=== PATIENT | male | born 1945 | race Caucasian/White ===

== ENCOUNTER 2019-08-14 09:27 | Inpatient (IN) | payer OTHER, SELFPAY ==
[2019-08-14] VITALS (26 sets, daily range): BP systolic 125–161; BP diastolic 59–119; PULSE 52–86; RESP 14–20; TEMP 36–36.6; O2SAT 92–100; BMI 31.6
--- NOTE | ~2019-08-14 | XR_ITS ---
XR chest 2V 08/14/2019 10:29 Indication: Chest palpitations, cough and dyspnea Procedure: 2 view chest Comparison: No prior studies for comparison. Findings: Status post median sternotomy for CABG. Cardiomegaly. No focal air space disease, pulmonary edema, pleural effusion or suspected pneumothorax. Impression: 1: No acute cardiopulmonary disease. Reviewed, dictated and finalized at location B. [facility] FLOOR LAYER Impression: 1: No acute cardiopulmonary disease.
--- NOTE | ~2019-08-14 | CT_ITS ---
EXAMINATION: CT brain wo con DATE: 08/14/2019 11:17 INDICATION: Lightheadedness. Dizziness. TECHNIQUE: Computed tomography (CT) of the head was performed without intravenous contrast. The mA wa s adjusted according to patient size. Iterative reconstruction technique was employed. The dose-lengt h product was 605.33 mGy-cm. COMPARISON: None FINDINGS: There are scattered areas of low attenuation in the cerebral white matter. There are old la cunar infarcts in the right thalamus and bilateral caudate nuclei. There is no intracranial hemorrhag e, acute infarction, or abnormal intracranial mass lesion. The ventricles are normal in size. There i s mucosal thickening in the paranasal sinuses. The mastoid air cells are normal. IMPRESSION: 1. Old lacunar infarcts in the right thalamus and bilateral caudate nuclei. 2. Mild nonspecific cerebral white matter disease, which likely represents chronic small vessel ische marisela disease. Reviewed, dictated and finalized at location A. F NURSE EXECUTIVE IMPRESSION: 1. Old lacunar infarcts in the right thalamus and bilateral caudate nuclei. 2. Mild nonspecific cerebral white matter disease, which likely represents life scientist marshall small vessel ischemic disease.
--- NOTE | 2019-08-14 10:11 | ED.ARRPALP ---
HPI - Arrhythmia/Palpitations General Chief Complaint: Arrhythmia/Palpitations Stated Complaint: weakness Time Seen by Provider: 08/14/19 09:57 Source: patient Mode of arrival: ambulatory Limitations: no limitations History of Present Illness HPI narrative: Pt is a 74 y/o male who presents to the ED with c/o lightheadedness that started Tuesday (2 days ago). Pt denies feeling dizzy but states that he feels uneasy. Pt is able to get up and walk around without feeling dizzy. He denies CP, SOB, ABD pain, numbness, leg swelling, or rashes. He states that he has been fighting a cough/cold for the last week. 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 He states that he was able to work 3 days ago. This morning he went to see his PCP and he was evaluated and had an EKG done. Pt states that his pulse rate was between 33-60BPM and they recommended he come to the ED and get evaluated. He notes that he took Tylenol Cold and Flu 3 days ago. Pt has a H/o of HTN, HLD, DM, and CABG. He denies a H/o COPD and he is a former smoker. complaint: irregular heart beat (lightheadedness) Onset (ago): day(s) (2) Duration: intermittent Associated symptoms: denies other symptoms Related Data Allergies Allergy/AdvReac Type Severity Reaction Status Date / Time No Known Allergies Allergy Unverified 08/14/19 10:13 Review of Systems Review of Systems: Narrative: CARDIOVASCULAR: Reports lightheadedness and irregular heartbeat. Denies CP RESPIRATORY: Denies dyspnea. Reports cough GASTROINTESTINAL: Denies abdominal pain. SKIN: Denies rash. MUSCULOSKELETAL: Denies BLE swelling NEUROLOGIC: Denies dizziness, numbness All systems reviewed & are unremarkable except as noted in HPI and below PMFSH Past Medical History Medical History (Updated 08/14/19 @ 13:28 by Darya Archuleta MD) CAD (coronary artery disease) CKD (chronic kidney disease), stage I Dizziness HTN (hypertension) Hyperlipidemia Hypothyroid Type 2 diabetes mellitus without complications Surgical History Surgical History History of basal cell carcinoma (BCC) excision (~2015) Back History of knee surgery (~2015) Right S/P CABG x 4 (~2012) Family History Family History (Updated 02/24/16 @ 11:08 by DOCTOR UNKNOWN) Other Diabetes mellitus Hypertension Social History Social History Smoking status: Former smoker Smoking end date: 06/13/11 Alcohol intake: current Exam Narrative: Exam Narrative: GENERAL: Well-appearing, well-nourished, and in no acute distress. HEAD: Normocephalic, atraumatic. EYES: PERRLA and EOMI. ENT: Nares clear, no rhinorrhea or epistaxis. Mucous membranes moist. NECK: Supple. CHEST: Faint wheezing. No respiratory distress. HEART: Regular rate and rhythm. No murmur heard. Normal peripheral pulses. ABDOMEN: Soft, nontender, nondistended, normal active bowel sounds. EXTREMITIES: Normal range of motion. No edema. SKIN: Warm, dry, no rash. NEURO: No focal deficits. Alert and oriented X3. Finger to nose intact bilaterally. EOMs intact without nystagmus. No facial droop/asymmetry noted bilaterally. Grimace intact. Intact sensation in face. Hearing intact bilaterally. Shoulder shrug intact. Strength 5/5 bilateral upper extremities. Strength 5/5 bilateral lower extremities. Reflexes 2+ patellar. Heel to milner intact bilaterally. Attempted to ambulate patient, he becomes very symptomatic, dizzy, monitor reads rate of 30s with frequent PVCs. Course Course Emergency Course: Patient presented for evaluation of low heart rate, concern for PVCs after being evaluated at his primary care physician's office. Patient states he has been generally feeling unwell, otherwise has cough, congestion type symptoms. No respiratory distress. No nausea, vomiting or vision changes. Patient has frequent PVCs on his EKG, at times seems to only be conducting beats at 30 bpm. Other
[2019-08-14] MEDS: SODIUM CHLORIDE 0.9% IV 1,000 ML 999 ML IV CONT ×2 (10:20→12:30)
[2019-08-14 10:25] LABS: Basophils Absolute Auto 0.1 K/mm3 (0.0-0.1); Basophils Percent Auto 0.6 % (0.2-1.2); Eosinophils Absolute Auto 0.2 K/mm3 (0-0.3); Eosinophils Percent Auto 2.7 % (0-4.4); Hematocrit 44.2 % (42.0-52.0); Hemoglobin 14.4 g/dL (14.0-18.0); Immature Granulocyte Absolute 0.06 K/mm3 (0.00-0.031); Immature Granulocyte Percent A 0.7 % (0-0.5); Lymphocytes Absolute Auto 3.34 K/mm3 (0.9-3.2); Lymphocytes Percent Auto 37.6 % (18.3-44.2); Mean Corpuscular HGB Conc 32.6 g/dl (32-36); Mean Corpuscular Hemoglobin 29.2 pg (26-34); Mean Corpuscular Volume 89.7 fl (80-100); Mean Platelet Volume 10.6 fl (7.4-10.4); Monocytes Absolute Auto 0.7 K/mm3 (0.1-0.6); Monocytes Percent Auto 7.5 % (2.6-8.5); Neutrophils Absolute Auto 4.5 K/mm3 (1.3-6.7); Neutrophils Percent Auto 50.9 % (45.5-73.1); Platelet Count Result 227 k/mm3 (150-375); Red Blood Count 4.93 M/mm3 (4.6-6.20); Red Cell Distribution Width 13.6 % (11.5-14.5); White Blood Count 8.9 K/mm3 (4.5-10.0)
[2019-08-14 10:35] LABS: INR 0.9; Partial Thromboplastin Time 24.1 SECONDS (22.3-36.8); Prothrombin Time 11.5 Seconds (11.1-14.7)
[2019-08-14 10:40] LABS: Potassium 4.1 mmol/L (3.4-5.0)
[2019-08-14 10:41] LABS: Alanine Aminotransferase 50 U/L (4-50); Albumin Level 4.6 g/dL (3.5-5.1); Alkaline Phosphatase 73 U/L (38-126); Aspartate Amino Transferase 59 U/L (17-59); Bilirubin,Total 0.9 mg/dL (0.2-1.3); Blood Urea Nitrogen 22 mg/dL (9-20); Calcium 8.9 mg/dL (8.4-10.2); Carbon Dioxide 29 mmol/L (22-30); Chloride 94 mmol/L (98-107); Estimated CRCL calculation 50 ml/min; Estimated Glomerular Filt Rate 59; Glucose 149 mg/dL (75-110); Lipase 169 U/L (23-300); Sodium 138 mmol/L (137-145)
[2019-08-14 10:51] LABS: Troponin I < 0.012 ng/mL (0.000-0.034)
--- NOTE | 2019-08-14 10:51 | ECG_ITS ---
Measurements Intervals [place] Rate: 69 P: 64 AL: 172 QRS: 2 QRSD: 122 T: -6 QT: 362 QTc: 389 Interpretive Statements SINUS RHYTHM FREQUENT VENTRICULAR PREMATURE COMPLEXES INTRAVENTRICULAR CONDUCTION DELAY CONSIDER INFERIOR INFARCT, AGE INDETERMINATE NONSPECIFIC ST & T-WAVE ABNORMALITY- LATERAL LEADS ABNORMAL ECG Electronically Signed On 08-14-2019 10:57:00 [employer] by Eduardo Chun D.O.
[2019-08-14 12:12] LABS: Add Urine Microscopic? NO; Appearance Urine Clear (Clear); Bilirubin Urine Negative (Negative); Blood Urine Negative (Negative); Color Urine Yellow (Yellow); Glucose Urine UA Negative (Negative); Ketones Urine Negative (Negative); Leukocyte Esterase Ur Negative LEU/UL (Negative); Nitrate Urine Negative (Negative); Protein Urine Negative (Negative); Specific Grav Ur 1.011 (1.001-1.035); Urobilinogen Urine Negative mg/dL (<2.0)
--- NOTE | 2019-08-14 14:41 | PC.NURSE ---
This patient, Lester Real, was admitted to IMU Room 206-01. Patient/family oriented to hospital policies and general routines including ID bracelet, bed and alarms, visiting hours, pain management, procedures, bathroom and other care routines, personal items, smoking policy, room service/diet, and visiting hours. Valuables list has been completed. Information on how to activate the Rapid Response Team has been discussed. Patient/Family are encouraged to report perceived risks to care and to ask questions if they do not understand what they are told or what they should do.
--- NOTE | 2019-08-14 15:12 | PM.IMHP ---
H&P: HPI History of Present Illness Chief complaint: weakness Narrative: Lester Real is a 74 year old male has a history of hypertension and also history of having frequent PVCs. The patient had cold-like symptoms for about the last week. He had cough and nasal congestion and he is been wheezing as well. The patient tells me that he did take Tylenol cold and flu but is no longer taking that at this time. He does he does not like taking medication. He has been on metoprolol but has been on it usp. He was able to work until about 3 days ago. The patient has been feeling dizzy and easy. When he gets up and walks around he feels dizzy. He denies any chest pain no fever no chills. He states that his pulse has been anywhere 33-60 beats per minute. When the patient was up ambulating in the emergency room he was having frequent PVCs and his heart rate dropped into the 30s. This is when he started to have symptoms of dizziness. Cardiology here has seen the patient. Has a history of having a four-vessel CABG August of 2012. The patient stated he has been feeling tired during the day the last week. He has never been tested for sleep apnea. Patient's TSH was 7.410 but no free T4 was resulted yet. Chest x-ray was read as no acute cardiopulmonary disease. Head CT shows old lacunar infarcts in the right thalamus and bilateral caudate nuclei. The patient went to his doctor's office today was sent to the emergency room from there. Date of service 08/14/2019 Review of Systems Review of Systems: Narrative: No nausea no vomiting no diarrhea no difficulty urinating at this time. Patient has BPH and had been urinating frequently but since he has been on medication he has been doing much better. He has had cold-like symptoms for at least a week. All systems reviewed & are unremarkable except as noted in HPI and below Constitutional: Constitutional: Reports as per HPI and Reports no additional constitutional complaints Eyes: Eyes: Reports as per HPI and Reports no additional eye complaints ENT: Reports system reviewed and no additional complaints, except as documented and Reports Normal hearing present Cardiovascular: Cardiovascular: Reports no additional cardiovascular complaints Respiratory: Respiratory: Reports no additional respiratory complaints and Reports no additional respiratory complaints Gastrointestinal: Gastrointestinal: Reports as per HPI and Reports no additional gastrointestinal complaints Musculoskeletal: Musculoskeletal: Reports no additional musculoskeletal complaints Integumentary/Breasts: Skin/Breast: Reports system reviewed and no additional complaints, except as docu and Reports as per HPI Neurologic: Reports system reviewed and no additional complaints, except as documented, Reports as per HPI and Reports Normal hearing present Psychiatric: Psychiatric: Reports no additional psychiatric complaints and Reports as per HPI Endocrine: Endocrine: Reports no additional endocrine complaints Hematologic/Lymphatic: Hematologic/Lymphatic: Reports no additional hematologic/lymphatic complaints Allergic/Immunologic: Allergic/Immunologic: Reports no additional allergic/immunologic complaints [facility] Past Medical History Medical History (Updated 08/14/19 @ 15:31 by Balbina Rubalcava NP) BPH (benign prostatic hyperplasia) C. difficile colitis After being treated for a tooth infection. He was placed on antibiotics and then developed C diff. CAD (coronary artery disease) Four-vessel CABG 2012 CKD (chronic kidney disease), stage I CVA (cerebral vascular accident) Old lacunar infarcts in the right thalamus and bilateral caudate nuclear. This was seen on the CT today Dizziness HTN (hypertension) Hyperlipidemia Hypothyroid Type 2 diabetes mellitus without complications Surgical History Surgical History (Updated 08/14/19 @ 15:24 by Balbina Rubalcava NP) H/O cardiac catheterization History of basal cell carcinoma (B
[2019-08-14 15:17] LABS: Free T4 Free Thyroxine Reflex 1.65 ng/dL (0.78-2.19)
[2019-08-14 16:04] LABS: Total Triiodothyronine (T3) 1.21 NG/ML (0.97-1.69)
[2019-08-14] MEDS: TAMSULOSIN HCL 0.4 MG CAPSULE PO (16:26)
[2019-08-14 16:39] LABS: Magnesium 1.8 mg/dL (1.6-2.3)
[2019-08-14 16:48] LABS: Influenza Control Positive
[2019-08-14 16:51] LABS: Troponin I < 0.012 ng/mL (0.000-0.034)
--- NOTE | 2019-08-14 17:41 | WPDCN ---
Assessment and Plan Assessment and plan (1) Frequent PVCs: Code(s): I49.3 - Ventricular premature depolarization Status: Acute Assessment and Plan: The patient presents with dizziness which does not sound like vertigo or presyncope, and was found to have frequent PVCs. Apparently there is a correlation between his dizziness and ventricular bigeminy. Etiology of the PVCs is uncertain: --does have some inducible ischemia but no anginal symptoms. --electrolytes look fine --already takes a beta-angelina --has been taking some decongestants but none in the last couple of days, not much caffeine Treatment of symptomatic PVCs would be to increase the beta-angelina, versus add an antiarrhythmic such as sotalol, versus EP consult for catheter ablation. I think sotalol would be the best treatment at this time. I discussed this with the patient and his daughter Amie. He will need 3 days of inpatient monitoring if we start this as sometimes sotalol could make things worse instead of better. He desires to proceed with a trial of sotalol, see if his PVCs are abolished, and if he feels better. Daily EKG probably start sotalol. May need to reduce or discontinue metoprolol. Check echo to reassess LV function (2) Dizziness: Code(s): R42 - Dizziness and giddiness Status: Acute Assessment and Plan: Presumably due to frequent PVCs (3) CAD (coronary artery disease): Code(s): I25.10 - Atherosclerotic heart disease of [place] coronary artery without angina pectoris Status: Acute Assessment and Plan: History of CAD, CABG, closure of the diagonal/CX graft, stenosis of the RCA graft, but asymptomatic on medical therapy. (4) History of stroke: Code(s): Z86.73 - Personal history of transient ischemic attack (TIA), and cerebral infarction without residual deficits Status: Acute Assessment and Plan: Old lacunar infarcts noted on CT scan, incidental findings most likely, but at some point would be good to check a carotid ultrasound. Continue aspirin and statin therapy, optimal blood pressure and diabetes control HPI Data of Consult Date/Time: 08/14/19 17:41 Requesting Physician: Dennis Amezcua MD Primary Care Provider: Leslee Terry MD Consult Narrative Reason for consult: Frequent PVCs Narrative: Date of service: 08/14/2019 Lester Real is a 74 year old male whom we were asked to see at the request of Dr. Gonzalez for advice and opinion regarding his frequent PVCs, in consultation. Mr. Real is followed by Dr. Lees in our office for his CAD and history of CABG. He has a history of APCs, HTN, DM and HLD. History of remote tachycardia treated with metoprolol. Mr Real developed an upper respiratory infection last week with a cough and took a day off work. He has been taking Tylenol cold and flu q.h.s. and was feeling better. On Tuesday he started feeling ?off kilter.? He has been having lightheadedness which comes and goes. He denies vertigo or presyncope. No palpitations. he went to see Dr. Miles and it appeared that he had intermittent bradycardia with heart rates in the 30s. He was sent to the ER and he was found to have no bradycardia but frequent PVCs. Apparently he is having more frequent PVCs with ambulation. No associated shortness of breath or chest discomfort. Drinks 2 cups of coffee daily. had a CABG x4 [place] [address] Bhatia at [facility]. He had an abnormal stress test last June 2018 (EF 59%, reversible lateral defect consistent with ischemia and a fixed inferior defect with mild elina-infarct ischemia, hypokinesis of the inferior wall) and had a heart catheterization by Dr. Perdomo which showed the SVG/radial artery graft to the circumflex and diagonal was occluded. His 90-95% stenosis of the circumflex trunk, patent left main, 80% stenosis of the Left anterior descending with a patent BELLE to the Left anterior descending an
[2019-08-14 19:46] LABS: Troponin I < 0.012 ng/mL (0.000-0.034)
[2019-08-14] MEDS: SOTALOL HCL 80 MG TABLET PO (20:03)
[2019-08-14] MEDS: SIMVASTATIN 20 MG TABLET PO (20:03)
[2019-08-14] MEDS: IPRATROPIUM BR 0.02% INH SOLN 0.5 MG/2.5 ML VIAL INHALATION (21:31)
[2019-08-14] MEDS: ALBUTEROL SULFATE NEB 2.5 MG/0.5 ML INH INHALATION (21:31)
[2019-08-14] MEDS: MELATONIN 3 MG TABLET PO (22:33)
[2019-08-15] VITALS (26 sets, daily range): BP systolic 114–159; BP diastolic 58–84; PULSE 49–83; RESP 16–22; TEMP 36.1–36.7; O2SAT 94–100
--- NOTE | 2019-08-15 | ECHO_ITS ---
Patient Info Name: Lester Real Age: 74 years : 1945 Gender: Male Ht: 66 in Wt: 197 lbs BSA: 2.07 m2 HR: 60 bpm BP: 145 / 67 mmHg Heart Rhythm: Sinus Rhythm Technical Quality: Fair Exam Date: 08/15/2019 9:26 AM Exam Location: [facility] Pulmonary Patient Status: Inpatient Admit Date: 08/14/2019 Staff Ordering Physician: Dayan Wang MD Jigsaw Operator: Yoan Bardales STEPHANIE Attending Provider: Dennis Amezcua MD Referring Physician: Kathleen VILLASEÑOR; Exam Type: CA echo dop color flow w con Study Info Indications I49.3 - Ventricular premature depolarization Complete two-dimensional, color flow and Doppler transthoracic echocardiogram is performed with contrast to opacify the left ventrical and to improve the deliniation of the left ventrical endocarial boarders. Contrast/Agitated Saline Contrast/Ag. Saline: Definity Amount: 2.00 ml Administered By: Shailesh Shah RN Existing IV Access: Yes History/Risk Factors Frequent PVCs resulting in dizziness; CAD s/p 4vCABG 2012, CKD, HTN, DM2. Summary 1. Left ventricular chamber dimension is normal. 2. Left ventricular systolic function is normal, estimated at 50-55%. 3. Definity contrast injected to improve visualization. 4. Following the definity injection the basal inferior segments appear to be akinetic. 5. The right-sided chambers are poorly visualized. Left Ventricle Left ventricular chamber dimension is normal. Left ventricular systolic function is normal, estimated at 50-55%. Definity contrast injected to improve visualization. Following the definity injection the basal inferior segments appear to be akinetic. Right Ventricle Right ventricular chamber dimension is not well visualized. Left Atria Left atrial chamber dimension is mildly enlarged. Right Atria Right atrial chamber dimension is not well visualized. Aortic Valve The aortic valve is trileaflet. There is mild aortic valve sclerosis. Pulmonic Valve The pulmonic valve is not well visualized. Mitral Valve The mitral valve has normal leaflets. Trivial MR is noted. Tricuspid Valve The tricuspid valve leaflets are not well visualized. Pericardium/Pleural The pericardium appears normal. Aorta The aortic root size at the sinus of Valsalva is normal. Left Ventricular Outflow Tract Name Value Normal LVOT 2D LVOT Diameter 1.98 cm LVOT Doppler LVOT Peak Gradient 3 mmHg LVOT Mean Gradient 1 mmHg LVOT VTI 17.97 cm LVOT VTI/AV VTI Ratio 0.60 LVOT Stroke Volume 55.18 ml LVOT CO 3.34 l/min LVOT CI 1.61 L/min/m2 Mitral Valve Name Value Normal MV Doppler
[2019-08-15] MEDS: IPRATROPIUM BR 0.02% INH SOLN 0.5 MG/2.5 ML VIAL INHALATION ×4 (03:43→21:19)
[2019-08-15] MEDS: ALBUTEROL SULFATE NEB 2.5 MG/0.5 ML INH INHALATION ×4 (03:43→21:19)
[2019-08-15 04:43] LABS: Basophils Percent Auto 0.4 % (0.2-1.2); Eosinophils Absolute Auto 0.3 K/mm3 (0-0.3); Eosinophils Percent Auto 3.4 % (0-4.4); Hematocrit 38.4 % (42.0-52.0); Hemoglobin 12.5 g/dL (14.0-18.0); Immature Granulocyte Absolute 0.04 K/mm3 (0.00-0.031); Immature Granulocyte Percent A 0.5 % (0-0.5); Lymphocytes Percent Auto 37.8 % (18.3-44.2); Mean Corpuscular HGB Conc 32.6 g/dl (32-36); Mean Corpuscular Hemoglobin 29.3 pg (26-34); Mean Corpuscular Volume 90.1 fl (80-100); Mean Platelet Volume 10.7 fl (7.4-10.4); Monocytes Absolute Auto 0.6 K/mm3 (0.1-0.6); Monocytes Percent Auto 7.6 % (2.6-8.5); Neutrophils Absolute Auto 3.7 K/mm3 (1.3-6.7); Neutrophils Percent Auto 50.3 % (45.5-73.1); Platelet Count Result 213 k/mm3 (150-375); Red Blood Count 4.26 M/mm3 (4.6-6.20); Red Cell Distribution Width 13.6 % (11.5-14.5); White Blood Count 7.4 K/mm3 (4.5-10.0)
[2019-08-15 05:10] LABS: Alanine Aminotransferase 42 U/L (4-50); Albumin Level 3.7 g/dL (3.5-5.1); Alkaline Phosphatase 54 U/L (38-126); Aspartate Amino Transferase 45 U/L (17-59); Bilirubin,Total 0.9 mg/dL (0.2-1.3); Blood Urea Nitrogen 18 mg/dL (9-20); Calcium 8.2 mg/dL (8.4-10.2); Carbon Dioxide 26 mmol/L (22-30); Chloride 104 mmol/L (98-107); Estimated CRCL calculation 54 ml/min; Estimated Glomerular Filt Rate > 60; Glucose 111 mg/dL (75-110); Hemoglobin A1C 7.5 % (<5.7); Potassium 3.7 mmol/L (3.4-5.0); Sodium 137 mmol/L (137-145)
[2019-08-15] MEDS: LEVOTHYROXINE SODIUM 88 MCG TABLET PO (06:37)
--- NOTE | 2019-08-15 08:00 | ECG_ITS ---
Measurements Intervals [place] Rate: 61 P: 60 VT: 189 QRS: -7 QRSD: 124 T: -27 QT: 454 QTc: 458 Interpretive Statements SINUS RHYTHM VENTRICULAR PREMATURE COMPLEX INTRAVENTRICULAR CONDUCTION DELAY BORDERLINE ST-T WAVE ABNORMALITY- INF/LAT LEADS BORDERLINE ECG Electronically Signed On 08-15-2019 10:14:16 [employer] by Eduardo Chun D.O.
[2019-08-15 08:09] LABS: Glucose Point of Care 119 (65-105)
[2019-08-15] MEDS: METOPROLOL SUCCINATE EXT REL 25 MG TABCR PO (08:33)
[2019-08-15] MEDS: ACIDOPHILUS/BULGARICUS CHEWABLE TABLET 1 TABLET PO (08:33)
[2019-08-15] MEDS: TAMSULOSIN HCL 0.4 MG CAPSULE PO (08:33)
[2019-08-15] MEDS: SOTALOL HCL 80 MG TABLET PO (08:33)
[2019-08-15] MEDS: PERFLUTREN LIPID MICROSPHERES 1.5 ML VIAL DILUTED TO 10 ML TOTAL VOLUME IV PUSH (09:50)
[2019-08-15] MEDS: POTASSIUM CHLORIDE 20 MEQ PACKET (FOR LIQUID) 40 MEQ PO (11:20)
--- NOTE | 2019-08-15 12:29 | PM.PNCARD ---
Progress Note: A&P Assessment and Plan (1) Frequent PVCs: Code(s): I49.3 - Ventricular premature depolarization Status: Acute Assessment and Plan: Presents with dizziness found to have frequent PVCs. Apparently there is a correlation between his dizziness and ventricular bigeminy. Etiology of the PVCs is uncertain: Does have some inducible ischemia but no anginal symptoms. Electrolytes are being supplemented. Started on sotalol 80 mg with 1st dose last evening. Second dose this morning at 8:33 a.m.. Also had Metoprolol succinate 25 mg (1/2 his home dose). Very symptomatic with bradycardia. Complaining of shortness of breath as well as dizziness. PVCs have decreased. Stop Metoprolol succinate. Will give glucagon 3 mg IV push and see how his heart response. May repeat in 10 minutes if no response. Could follow with drip if needed. Oxygen 2 L/nasal cannula now for comfort at this point. Echo is pending. (2) Dizziness: Code(s): R42 - Dizziness and giddiness Status: Acute Assessment and Plan: Presumably due to frequent PVCs (3) CAD (coronary artery disease): Qualifiers: Coronary Disease-Associated Artery/Lesion type: [place] artery [place] vs. transplanted heart: [place] heart Associated angina: without angina Qualified Code(s): I25.10 - Atherosclerotic heart disease of [place] coronary artery without angina pectoris Code(s): I25.10 - Atherosclerotic heart disease of [place] coronary artery without angina pectoris Status: Acute Assessment and Plan: History of CAD, CABG, closure of the diagonal/CX graft, stenosis of the RCA graft, but asymptomatic on medical therapy (4) History of stroke: Code(s): Z86.73 - Personal history of transient ischemic attack (TIA), and cerebral infarction without residual deficits Status: Acute Assessment and Plan: Old lacunar infarcts noted on CT scan, incidental findings most likely, but at some point would be good to check a carotid ultrasound. Continue aspirin and statin therapy, optimal blood pressure and diabetes control Additional Plan Plan discussed with Dr. Perdomo [id number] 08/15/2019 Time Spent With Patient Time with patient: 15 - 25 minutes Subjective Date/time seen: 08/15/19 12:29 Interval history: Follow-up for: Frequent PVCs, dizziness, shortness of breath, history of coronary artery disease history of TIA Date of service: 08/15/2019 Subjective: Not feeling well at all. Very lightheaded. Feels short of breath and wheezy. Denied chest pain. Daughter at bedside. Review of Systems Constitutional: Constitutional: Reports fatigue and Reports headache(s) Eyes: Eyes: Denies blurry vision ENT: Reports Normal hearing present, Denies headache(s), Denies epistaxis and Denies neck pain Cardiovascular: Cardiovascular: Denies chest pain, Denies leg edema, Reports lightheadedness, Denies palpitations and Reports dyspnea Respiratory: Respiratory: Reports chest congestion, Reports dyspnea and Reports wheezing Gastrointestinal: Gastrointestinal: Denies abdominal pain and Denies hematemesis Genitourinary: Genitourinary: Denies dysuria Musculoskeletal: Musculoskeletal: Denies arthralgias and Denies neck pain Integumentary/Breasts: Skin/Breast: Denies rash Neurologic: Reports Normal hearing present, Denies Abnormal speech present, Denies confusion, Reports dizziness, Denies syncope and Reports headache(s) Psychiatric: Psychiatric: Denies anxiety Endocrine: Endocrine: Reports fatigue and Denies palpitations Hematologic/Lymphatic: Hematologic/Lymphatic: Denies easy bruising Allergic/Immunologic: Allergic/Immunologic: Reports wheezing Exam Narrative: Exam Narrative: Daughter at bedside Const: General: cooperative, in distress and confusion Nutritional Appearance: obese Orientation/
[2019-08-15 13:41] LABS: Glucose Point of Care 194 (65-105)
[2019-08-15] MEDS: GLUCAGON FOR INJ 1 MG VIAL 3 MG IV PUSH ×2 (13:42→14:06)
[2019-08-15] MEDS: MAGNESIUM SULF 2 GM/WATER 50ML 2 GM/50 ML BAG IVPB (13:43)
--- NOTE | 2019-08-15 16:37 | PM.IMPN ---
Progress Note: A&P Assessment and Plan (1) Symptomatic bradycardia: Code(s): R00.1 - Bradycardia, unspecified Status: Acute Assessment and Plan: Cardiology has been consulted. I am awaiting T4 on his lab results. TSH is high. Could be subclinical however any the T4 ordered to make a decision if if he needs more thyroid medications. Hold the metoprolol. And hold the triamterene. Further recommendation per Cardiology IV fluids have been started 08/15/19 16:37 Patient is 74-year-old male with history of hypertension and PVCs he had been suffering from upper respiratory infection and fell dizzy on and off was seen by his primary care doctor and EKG which showed patient's heart rate in 30s and 60 with PVCs he was sent to emergency department for further evaluation, was seen by certified solid waste facility operator and suspect the frequent PVCs may have been cause of his dizziness and uneasiness, recommended to switch over to sotalol to prevent PVCs he is already on metoprolol which will be stopped, today patient still feeling dizzy, denies any chest pain shortness of breath palpitation fever or chills will continue to monitor to make sure there is no side effect of sotalol sometime it can cause worsening of the rhythm (2) Type 2 diabetes mellitus without complications: Code(s): E11.9 - Type 2 diabetes mellitus without complications Status: Chronic Assessment and Plan: Sliding scale insulin check A1c. Hold metformin and glyburide (3) Hyperlipidemia: Code(s): E78.5 - Hyperlipidemia, unspecified Status: Chronic Assessment and Plan: Continue simvastatin (4) Hypothyroid: Code(s): E03.9 - Hypothyroidism, unspecified Status: Chronic Assessment and Plan: Continue with levothyroxine unless the T for his resulted we need to change chills. (5) CKD (chronic kidney disease), stage I: Code(s): N18.1 - Chronic kidney disease, stage 1 Status: Acute Assessment and Plan: Lab stable continue to monitor. (6) Dizziness: Code(s): R42 - Dizziness and giddiness Status: Acute Assessment and Plan: According to the ED the patient felt dizzy after he is having multiple PVCs. Will check Mag levels well. CT scan of the brain is negative Flomax can cause some dizziness but he has been on it for a while. I do not suspect that it is from Flomax. Plan is above Subjective Date/time seen: 08/15/19 16:37 Patient is 74-year-old male with history of hypertension and PVCs he had been suffering from upper respiratory infection and fell dizzy on and off was seen by his primary care doctor and EKG which showed patient's heart rate in 30s and 60 with PVCs he was sent to emergency department for further evaluation, was seen by certified solid waste facility operator and suspect the frequent PVCs may have been cause of his dizziness and uneasiness, recommended to switch over to sotalol to prevent PVCs he is already on metoprolol which will be stopped, today patient still feeling dizzy, denies any chest pain shortness of breath palpitation fever or chills Review of Systems Review of Systems: All systems reviewed & are unremarkable except as noted in HPI and below Exam Const: General: comfortable and no acute distress HENMT: General nose exam: Normal nares present Mouth: Yes moist mucous membranes Eyes: General: appearance normal, both eyes and all related structures Sclera: sclerae normal Neck: Neck: supple Resp: Effort & Inspection: normal respiratory effort Auscultation: clear to auscultation bilaterally Cardio: Rate: regular rate Rhythm: regular rhythm GI: Auscultation: normal bowel sounds Skin: General skin exam: normal color and no rashes or lesions noted Neuro: Speech: normal speech Sensory Exam: normal sensation Extrem: General: normal to inspection Psych: Affect: Anxious affect present Objective Data Vital Signs Vital Signs: Vital Signs - 24 hr 08/14/19 18:00 08/14/19 19:5
[2019-08-15 20:40] LABS: Glucose Point of Care 184 (65-105)
[2019-08-15 20:40] LABS: Glucose Point of Care 171 (65-105)
--- NOTE | 2019-08-15 21:00 | ECG_ITS ---
Measurements Intervals [place] Rate: 58 P: 76 NE: 193 QRS: -2 QRSD: 121 T: -25 QT: 459 QTc: 452 Interpretive Statements SINUS BRADYCARDIA VENTRICULAR PREMATURE COMPLEX INTRAVENTRICULAR CONDUCTION DELAY NONSPECIFIC ST & T-WAVE ABNORMALITY- INF/LAT LEADS BASELINE WANDER- V4 BORDERLINE ECG Electronically Signed On 08-16-2019 6:41:36 [employer] by Eduardo Chun D.O.
[2019-08-15] MEDS: MELATONIN 3 MG TABLET PO (21:14)
[2019-08-15] MEDS: SIMVASTATIN 20 MG TABLET PO (21:14)
[2019-08-16] VITALS (31 sets, daily range): BP systolic 123–141; BP diastolic 52–109; PULSE 50–75; RESP 16–22; TEMP 36.1–36.5; O2SAT 96–100
--- NOTE | 2019-08-16 03:41 | PCRCNOTE ---
patient did not want to be awakened for neb tx; RN is aware
[2019-08-16 06:29] LABS: Hemoglobin 12.8 g/dL (14.0-18.0); Mean Corpuscular HGB Conc 32.8 g/dl (32-36); Mean Corpuscular Hemoglobin 29.6 pg (26-34); Mean Corpuscular Volume 90.1 fl (80-100); Mean Platelet Volume 10.5 fl (7.4-10.4); Platelet Count Result 230 k/mm3 (150-375); Red Blood Count 4.33 M/mm3 (4.6-6.20); Red Cell Distribution Width 13.5 % (11.5-14.5); White Blood Count 8.1 K/mm3 (4.5-10.0)
[2019-08-16 06:41] LABS: Blood Urea Nitrogen 19 mg/dL (9-20); Calcium 8.3 mg/dL (8.4-10.2); Carbon Dioxide 27 mmol/L (22-30); Chloride 99 mmol/L (98-107); Estimated CRCL calculation 54 ml/min; Estimated Glomerular Filt Rate > 60; Glucose 112 mg/dL (75-110); Magnesium 2.3 mg/dL (1.6-2.3); Potassium 4.1 mmol/L (3.4-5.0); Sodium 139 mmol/L (137-145)
[2019-08-16] MEDS: LEVOTHYROXINE SODIUM 88 MCG TABLET PO (06:54)
[2019-08-16] MEDS: TAMSULOSIN HCL 0.4 MG CAPSULE PO (08:13)
[2019-08-16] MEDS: ACIDOPHILUS/BULGARICUS CHEWABLE TABLET 1 TABLET PO (08:13)
[2019-08-16] MEDS: IPRATROPIUM BR 0.02% INH SOLN 0.5 MG/2.5 ML VIAL INHALATION ×3 (08:32→19:30)
[2019-08-16] MEDS: ALBUTEROL SULFATE NEB 2.5 MG/0.5 ML INH INHALATION ×3 (08:32→19:30)
--- NOTE | 2019-08-16 10:36 | PM.PNCARD ---
Progress Note: A&P Assessment and Plan (1) Frequent PVCs: Code(s): I49.3 - Ventricular premature depolarization Status: Acute Assessment and Plan: Presents with dizziness found to have frequent PVCs. Apparently there is a correlation between his dizziness and ventricular bigeminy. Etiology of the PVCs is uncertain: Does have some inducible ischemia but no anginal symptoms. Electrolytes have been supplemented. Echo 08/15/2019: 1. Left ventricular chamber dimension is normal. 2. Left ventricular systolic function is normal, estimated at 50-55%. 3. Definity contrast injected to improve visualization. 4. Following the definity injection the basal inferior segments appear to be akinetic. 5. The right-sided chambers are poorly visualized. Significantly symptomatic with bradycardia as well yesterday after lower dose of Metoprolol succinate and dose of sotalol. Metoprolol succinate discontinued. Sotalol dose decreased to 40 mg to be given if heart rate was less than 65 yesterday evening. This was held due to heart rate being 58 beats per minute. Feeling better this morning with a higher heart rate. Discussed possibility for increase in PVCs is due to bradycardia. Has been Metoprolol for years. States he was put on a by his primary care provider years before his bypass surgery for some type of tachycardia. I am unable to locate what this could of been in any of the office notes available. Will monitor for any tachycardia while we withdraw his beta-angelina. (2) Dizziness: Code(s): R42 - Dizziness and giddiness Status: Acute Assessment and Plan: May be due to frequent PVCs which produces a functional bradycardia but also had dizziness yesterday with less PVCs and heart rates in the low 50s. Medication changes as above. (3) CAD (coronary artery disease): Qualifiers: Associated angina: without angina Coronary Disease-Associated Artery/Lesion type: [place] artery [place] vs. transplanted heart: [place] heart Qualified Code(s): I25.10 - Atherosclerotic heart disease of [place] coronary artery without angina pectoris Code(s): I25.10 - Atherosclerotic heart disease of [place] coronary artery without angina pectoris Status: Acute Assessment and Plan: History of CAD, CABG, closure of the diagonal/CX graft, stenosis of the RCA graft, but asymptomatic on medical therapy (4) History of stroke: Code(s): Z86.73 - Personal history of transient ischemic attack (TIA), and cerebral infarction without residual deficits Status: Acute Assessment and Plan: Old lacunar infarcts noted on CT scan, incidental findings most likely, but at some point would be good to check a carotid ultrasound. Continue aspirin and statin therapy, optimal blood pressure and diabetes control Additional Plan Plan discussed with Dr. Perdomo [id number] 08/16/2019 Subjective Date/time seen: 08/16/19 10:36 Interval history: Follow-up for: Frequent PVCs, dizziness, shortness of breath, history of coronary artery disease history of TIA Date of service: 08/16/2019 Subjective: Feeling much better today. Denied chest discomfort. Less wheezing. Slept much better. Oxygen was weaned off however had an episode of feeling lightheaded and oxygen at 2 L per nasal cannula reapplied with lightheadedness resolving. Denied lightheadedness at the time of our interview. Review of Systems Constitutional: Constitutional: Denies headache(s) Eyes: Eyes: Denies blurry vision ENT: Reports Normal hearing present, Denies dizziness, Denies headache(s), Denies epistaxis and Denies neck pain Cardiovascular: Cardiovascular: Denies chest pain, Denies syncope, Denies leg edema, Reports lightheadedness (Significantly improved), Denies palpitations and Denies dyspnea Respiratory: Respiratory: Denies chest c
[2019-08-16 11:48] LABS: Glucose Point of Care 174 (65-105)
--- NOTE | 2019-08-16 15:17 | PM.IMPN ---
Progress Note: A&P Assessment and Plan (1) Symptomatic bradycardia: Code(s): R00.1 - Bradycardia, unspecified Status: Acute Assessment and Plan: 08/16/19 15:17 Patient is 74-year-old male with history of hypertension and PVCs he had been suffering from upper respiratory infection and fell dizzy on and off was seen by his primary care doctor and EKG which showed patient's heart rate in 30s and 60 with PVCs he was sent to emergency department for further evaluation, was seen by acid tank liner and suspect the frequent PVCs may have been cause of his dizziness and uneasiness, recommended to switch over to sotalol to prevent PVCs he is already on metoprolol which was stopped, however patient was getting more bardycardia and symptomatic with sotalol, cardiolgist has stopped sotalol and metoprolol to prevent further bardycardia and plan is to monitor overnight and decided tomorrow for further recommendation. (2) Type 2 diabetes mellitus without complications: Code(s): E11.9 - Type 2 diabetes mellitus without complications Status: Chronic Assessment and Plan: Sliding scale insulin check A1c. Hold metformin and glyburide (3) Hyperlipidemia: Code(s): E78.5 - Hyperlipidemia, unspecified Status: Chronic Assessment and Plan: Continue simvastatin (4) Hypothyroid: Code(s): E03.9 - Hypothyroidism, unspecified Status: Chronic Assessment and Plan: Continue with levothyroxine unless the T for his resulted we need to change chills. (5) CKD (chronic kidney disease), stage I: Code(s): N18.1 - Chronic kidney disease, stage 1 Status: Acute Assessment and Plan: Lab stable continue to monitor. (6) Dizziness: Code(s): R42 - Dizziness and giddiness Status: Acute Assessment and Plan: According to the ED the patient felt dizzy after he is having multiple PVCs. Will check Mag levels well. CT scan of the brain is negative Flomax can cause some dizziness but he has been on it for a while. I do not suspect that it is from Flomax. Plan is above Subjective Date/time seen: 08/16/19 15:17 Patient is 74-year-old male with history of hypertension and PVCs he had been suffering from upper respiratory infection and fell dizzy on and off was seen by his primary care doctor and EKG which showed patient's heart rate in 30s and 60 with PVCs he was sent to emergency department for further evaluation, was seen by acid tank liner and suspect the frequent PVCs may have been cause of his dizziness and uneasiness, recommended to switch over to sotalol to prevent PVCs he is already on metoprolol which was stopped, however patient was getting more bardycardia and symptomatic with sotalol, cardiolgist has stopped sotalol and metoprolol to prevent further bardycardia and plan is to monitor overnight and decided tomorrow for further recommendation. Review of Systems Review of Systems: All systems reviewed & are unremarkable except as noted in HPI and below Exam Narrative: Exam Narrative: Elderly frail Const: General: comfortable and no acute distress HENMT: General nose exam: Normal nares present Mouth: Yes moist mucous membranes Eyes: General: appearance normal, both eyes and all related structures Sclera: sclerae normal Neck: Neck: supple Resp: Effort & Inspection: normal respiratory effort Auscultation: clear to auscultation bilaterally Cardio: Rate: regular rate Rhythm: regular rhythm GI: Auscultation: normal bowel sounds Skin: General skin exam: normal color and no rashes or lesions noted Neuro: Speech: normal speech Sensory Exam: normal sensation Extrem: General: normal to inspection Psych: Affect: Anxious affect present Objective Data Vital Signs Vital Signs: Vital Signs - 24 hr 08/15/19 16:00 08/15/19 18:00 08/15/19 20:00 Temperature 97.3 F L Pulse Rate 58 L 61 61 Respiratory Rate 20 Blood Pressure 147/79 H Pulse Oximetry
[2019-08-16 17:30] LABS: Glucose Point of Care 184 (65-105)
[2019-08-16] MEDS: SIMVASTATIN 20 MG TABLET PO (20:24)
[2019-08-16 20:52] LABS: Glucose Point of Care 215 (65-105)
[2019-08-17] VITALS (13 sets, daily range): BP systolic 115–133; BP diastolic 65–74; PULSE 52–74; RESP 16–22; TEMP 36.1–36.4; O2SAT 94–97
[2019-08-17] MEDS: SALINE 0.65% NAS SOLN 44 ML BTL 1 SPRAY NASAL (01:12)
[2019-08-17] MEDS: MELATONIN 3 MG TABLET PO (01:13)
[2019-08-17] MEDS: ALBUTEROL SULFATE NEB 2.5 MG/0.5 ML INH INHALATION ×2 (02:45→08:32)
[2019-08-17] MEDS: IPRATROPIUM BR 0.02% INH SOLN 0.5 MG/2.5 ML VIAL INHALATION ×2 (02:45→08:32)
[2019-08-17 05:29] LABS: Hematocrit 36.3 % (42.0-52.0); Hemoglobin 11.8 g/dL (14.0-18.0); Mean Corpuscular HGB Conc 32.5 g/dl (32-36); Mean Corpuscular Hemoglobin 29.5 pg (26-34); Mean Corpuscular Volume 90.8 fl (80-100); Mean Platelet Volume 10.8 fl (7.4-10.4); Platelet Count Result 229 k/mm3 (150-375); Red Cell Distribution Width 13.4 % (11.5-14.5); White Blood Count 7.4 K/mm3 (4.5-10.0)
[2019-08-17 05:51] LABS: Blood Urea Nitrogen 18 mg/dL (9-20); Calcium 8.4 mg/dL (8.4-10.2); Carbon Dioxide 28 mmol/L (22-30); Chloride 105 mmol/L (98-107); Estimated CRCL calculation 54 ml/min; Estimated Glomerular Filt Rate > 60; Glucose 114 mg/dL (75-110); Potassium 3.7 mmol/L (3.4-5.0); Sodium 139 mmol/L (137-145)
[2019-08-17] MEDS: LEVOTHYROXINE SODIUM 88 MCG TABLET PO (06:37)
[2019-08-17 07:33] LABS: Glucose Point of Care 147 (65-105)
[2019-08-17] MEDS: TAMSULOSIN HCL 0.4 MG CAPSULE PO (09:09)
[2019-08-17] MEDS: ACIDOPHILUS/BULGARICUS CHEWABLE TABLET 1 TABLET PO (09:09)
--- NOTE | 2019-08-17 11:30 | PM.PNCARD ---
Progress Note: A&P Assessment and Plan (1) Frequent PVCs: Code(s): I49.3 - Ventricular premature depolarization Status: Acute Assessment and Plan: Feeling much better since beta-blockers have been discontinued. Continues to have PVCs however is no longer symptomatic. Will discharge without any beta-blockers (according to daughter was initially put on a beta-angelina for an episode of SVT). Thirty day event monitor has been arranged for discharge (2) Dizziness: Code(s): R42 - Dizziness and giddiness Status: Acute Assessment and Plan: May be due to frequent PVCs which produces a functional bradycardia but also had dizziness yesterday with less PVCs and heart rates in the low 50s. Plan as above. (3) CAD (coronary artery disease): Qualifiers: Coronary Disease-Associated Artery/Lesion type: [place] artery [place] vs. transplanted heart: [place] heart Associated angina: without angina Qualified Code(s): I25.10 - Atherosclerotic heart disease of [place] coronary artery without angina pectoris Code(s): I25.10 - Atherosclerotic heart disease of [place] coronary artery without angina pectoris Status: Acute Assessment and Plan: History of CAD, CABG, closure of the diagonal/CX graft, stenosis of the RCA graft, but asymptomatic on medical therapy Will need to monitor for anginal symptoms with discontinuation of beta-angelina. (4) History of stroke: Code(s): Z86.73 - Personal history of transient ischemic attack (TIA), and cerebral infarction without residual deficits Status: Acute Assessment and Plan: Old lacunar infarcts noted on CT scan, incidental findings most likely, but at some point would be good to check a carotid ultrasound. Continue aspirin and statin therapy, optimal blood pressure and diabetes control Blood pressure remains controlled without beta-angelina at this time. Monitor closely. Additional Plan OK to discharge from cardiac standpoint See discharge instructions for follow-up Plan discussed with Dr. Perdomo [id number] 07/19/2019 Subjective Date/time seen: 08/17/19 11:30 Interval history: Follow-up for: Frequent PVCs, dizziness, shortness of breath, history of coronary artery disease history of TIA Date of service: 08/17/2019 Subjective: Did sleep well last night as nose was congested. Got some saline spray about midnight. Denied chest discomfort or shortness of breath this time. No lightheadedness. OK with the plan to go home with monitor. Review of Systems Constitutional: Constitutional: Denies headache(s) Eyes: Eyes: Denies blurry vision ENT: Reports Normal hearing present, Denies dizziness, Denies headache(s), Denies epistaxis, Reports nasal congestion and Denies neck pain Cardiovascular: Cardiovascular: Denies chest pain, Denies syncope, Denies leg edema, Reports lightheadedness (Now with very rare episodes.), Denies palpitations and Denies dyspnea Respiratory: Respiratory: Denies chest congestion, Denies dyspnea and Denies wheezing Gastrointestinal: Gastrointestinal: Denies abdominal pain and Denies hematemesis Genitourinary: Genitourinary: Denies dysuria Musculoskeletal: Musculoskeletal: Denies arthralgias and Denies neck pain Integumentary/Breasts: Skin/Breast: Denies rash Neurologic: Reports Normal hearing present, Denies dizziness, Denies syncope and Denies headache(s) Psychiatric: Psychiatric: Denies anxiety Endocrine: Endocrine: Denies palpitations Hematologic/Lymphatic: Hematologic/Lymphatic: Denies easy bruising Allergic/Immunologic: Allergic/Immunologic: Denies wheezing Exam Narrative: Exam Narrative: Sleeping comfortably in bed without oxygen Const: General: cooperative and comfortable Nutritional Appearance: obese Orientation/consciousness: patient oriented x3 Limitations: no limitations H
--- NOTE | 2019-08-17 11:56 | PM.DS ---
DS: Diagnosis Admitting Diagnosis Admitting Diagnosis: Bradycardia, unspecified Discharge Diagnosis (1) Symptomatic bradycardia: Code(s): R00.1 - Bradycardia, unspecified Status: Acute Assessment and Plan: 08/16/19 15:17 Patient is 74-year-old male with history of hypertension and PVCs he had been suffering from upper respiratory infection and fell dizzy on and off was seen by his primary care doctor and EKG which showed patient's heart rate in 30s and 60 with PVCs he was sent to emergency department for further evaluation, was seen by ordained minister and suspect the frequent PVCs may have been cause of his dizziness and uneasiness, recommended to switch over to sotalol to prevent PVCs he is already on metoprolol which was stopped, however patient was getting more bardycardia and symptomatic with sotalol, cardiolgist has stopped sotalol and metoprolol to prevent further bardycardia and plan is to monitor overnight and decided tomorrow for further recommendation. (2) Type 2 diabetes mellitus without complications: Code(s): E11.9 - Type 2 diabetes mellitus without complications Status: Chronic Assessment and Plan: Sliding scale insulin check A1c. Hold metformin and glyburide (3) Hyperlipidemia: Code(s): E78.5 - Hyperlipidemia, unspecified Status: Chronic Assessment and Plan: Continue simvastatin (4) Hypothyroid: Code(s): E03.9 - Hypothyroidism, unspecified Status: Chronic Assessment and Plan: Continue with levothyroxine unless the T for his resulted we need to change chills. (5) CKD (chronic kidney disease), stage I: Code(s): N18.1 - Chronic kidney disease, stage 1 Status: Acute Assessment and Plan: Lab stable continue to monitor. (6) Dizziness: Code(s): R42 - Dizziness and giddiness Status: Acute Assessment and Plan: According to the ED the patient felt dizzy after he is having multiple PVCs. Will check Mag levels well. CT scan of the brain is negative Flomax can cause some dizziness but he has been on it for a while. I do not suspect that it is from Flomax. Plan is above DS: Summary Hospital Course Reason for hospitalization: Lester Real is a 74 year old male has a history of hypertension and also history of having frequent PVCs. The patient had cold-like symptoms for about the last week. He had cough and nasal congestion and he is been wheezing as well. The patient tells me that he did take Tylenol cold and flu but is no longer taking that at this time. He does he does not like taking medication. He has been on metoprolol but has been on it halfway. He was able to work until about 3 days ago. The patient has been feeling dizzy and easy. When he gets up and walks around he feels dizzy. He denies any chest pain no fever no chills. He states that his pulse has been anywhere 33-60 beats per minute. When the patient was up ambulating in the emergency room he was having frequent PVCs and his heart rate dropped into the 30s. This is when he started to have symptoms of dizziness. Cardiology here has seen the patient. Has a history of having a four-vessel CABG August of 2012. The patient stated he has been feeling tired during the day the last week. He has never been tested for sleep apnea. Patient's TSH was 7.410 but no free T4 was resulted yet. Chest x-ray was read as no acute cardiopulmonary disease. Head CT shows old lacunar infarcts in the right thalamus and bilateral caudate nuclei. The patient went to his doctor's office today was sent to the emergency room from there. Date of service 08/14/2019 Hospital Course: 08/16/19 15:17 Patient is 74-year-old male with history of hypertension and PVCs he had been suffering from upper respiratory infection and fell dizzy on and off was seen by his primary care doctor and EKG which showed patient's heart rate in 30s and 60 with PVCs he was sent to emergency department
== END 2019-08-17 13:30 | disposition home or self-care (01) | DRG 310 ==
LOC: ANHED 13:28 → ANHIMU 13:33
PROVIDERS: Nurse Practitioner; Admitting Provider Internal Medicine; Emergency Provider Emergency Medicine; PCP Internal Medicine; Visit Provider Family Medicine
DX: I49.3 Ventricular premature depolarization (principal); R42 Dizziness and giddiness; I25.10 Atherosclerotic heart disease of native coronary artery without angina pectoris; E78.5 Hyperlipidemia, unspecified; E10.22 Type 1 diabetes mellitus with diabetic chronic kidney disease; I12.9 Hypertensive chronic kidney disease with stage 1 through stage 4 chronic kidney disease, or unspecified chronic kidney disease; N18.1 Chronic kidney disease, stage 1; E03.9 Hypothyroidism, unspecified; N40.0 Benign prostatic hyperplasia without lower urinary tract symptoms; Z86.73 Personal history of transient ischemic attack (TIA), and cerebral infarction without residual deficits; Z28.21 Immunization not carried out because of patient refusal; Z85.828 Personal history of other malignant neoplasm of skin; Z95.1 Presence of aortocoronary bypass graft; Z87.891 Personal history of nicotine dependence
CPT/HCPCS: 36415; 70450; 71046; 80048; 80053; 81003; 83036; 83690; 83735; 84439; 84443; 84480; 84484; 85025; 85027; 85610; 85730; 87804; 93005; 94640; 96360; 96361; 96374; 99285; A9270; C8929; G0378; J1610; J3475; J7030; Q9957